=== PATIENT | male | born 1950 | race Caucasian/White ===

== ENCOUNTER 2018-08-22 14:35 | Emergency (ER) | payer MEDICARE, BC ==
[~2018-08-22] VITALS: Wt 90.8 kg
[2018-08-22 14:37] VITALS: BP 149/85; PULSE 70; RESP 18
[2018-08-22] MEDS ORDERED: KETOROLAC 30 MG INJ IM STA (15:57)
[2018-08-22] MEDS ORDERED: DEXAMETHASONE 10 MG/ML 1 ML INJ IM ONE (16:00)
[2018-08-22] MEDS ORDERED: LORA-441 PO (16:42)
[2018-08-22] MEDS ORDERED: NAPR-985 PO (16:42)
[2018-08-22] MEDS ORDERED: MED4DP PO (16:42)
--- NOTE | 2018-08-22 16:54 | ERD ---
ER Documentation Chief Complaint Chief Complaint L LOWER BACK AND LEFT LEG PAIN NON TRAUMATIC FOR 3 DAYS. UNABLE TO BEAR WT HPI 68-year-old male with past medical historyOf high cholesterol, hypertension, type 2 diabetes, spinal stenosis presenting to the emergency department with complaints of left lower back pain with radiation down his left leg for the past 3 days. He states he may have "tweaked" his back while lifting some heavy suitcases the past 2 days. He reports constant pain which is rated 9/10 in severity and worse with walking. He tried ibuprofen and [place] at home with some relief. He is followed by an orthopedic surgeon, Dr. Ruiz, at [facility] [place] who did order an MRI approximately 6 months ago and diagnosed his spinal stenosis. Patient denies any saddle anesthesia, loss of bowel or bladder function, lower extremity weakness, abdominal pain, fevers, chills, or other symptoms at this time. ROS All systems reviewed and are negative except as per history of present illness. Medications Home Meds Active Scripts Methylprednisolone* (Medrol* DOSE PACK) 4 Mg/Dose-Pack Tab.ds.pk, 4 MG PO . DIRECTED, #1 PACKET Prov:CARYL LAIRD PA-C 08/22/18 Naproxen* (Naprosyn*) 500 Mg Tablet, 500 MG PO BID PRN for PAIN AND/OR INFLAMMATION, #30 TAB Prov:CARYL LAIRD PA-C 08/22/18 Lorazepam* (Ativan*) 0.5 Mg Tablet, 0.5 MG PO Q8H PRN for MUSCLE SPASMS, #10 TAB Prov:CARYL LAIRD PA-C 08/22/18 Allergies Allergies: Coded Allergies: No Known Allergy (Unverified , 08/22/18) PMhx/Soc History of Surgery: No Anesthesia Reaction: No Hx Neurological Disorder: No Hx Respiratory Disorders: No Hx Cardiac Disorders: Yes (HTN) Hx Psychiatric Problems: No Hx Miscellaneous Medical Probl: No Hx Alcohol Use: No Hx Substance Use: No Hx Tobacco Use: No FmHx Family History: No diabetes Physical Exam Vitals Vital Signs Date Temp Pulse Resp B/P (MAP) Pulse Ox O2 O2 Flow FiO2 Time Delivery Rate 08/22/18 98.0 70 18 149/85 98 14:37 (106) Physical Exam Const: No acute distress Head: Atraumatic Eyes: Normal Conjunctiva ENT: Normal External Ears, Nose and Mouth. Neck: Full range of motion. No meningismus. Resp: Clear to auscultation bilaterally Cardio: Regular rate and rhythm, no murmurs Skin: No petechiae or rashes Back: No midline or flank tenderness. Subjective tenderness palpation of the paraspinal region of the lumbar spine on the left. Positive straight leg raise on the left. Ext: No cyanosis, or edema Neur: Awake and alert Psych: Normal Mood and Affect Results 24 hrs Current Medications Medications Dose Sig/Pérez Start Time Status Last (Trade) Ordered Route PRN Stop Time Admin Dose Reason Admin 10 mg ONCE ONCE 08/22/18 DC 08/22/18 Dexamethasone IM 16:00 08/22/18 16:04 (Decadron) 16:01 Ketorolac 30 mg ONCE STAT 08/22/18 DC 08/22/18 Tromethamine IM 15:57 08/22/18 16:04 (Toradol) 15:59 Procedures/MDM 68-year-old male presenting to the emergency department with signs and symptoms most consistent with left-sided low back pain with sciatica. The patient was administered Toradol and Decadron in the department with good response. He was significantly improved on reevaluation. He had no lower extremity weakness and he was ambulating in the department without assistance. He had no loss of bowel or bladder function. He had no saddle anesthesia. I did discuss his case with the patient's orthopedic physician, Dr. Ruiz who is in agreement with deferment of imaging at this time and plan to discharge home with close outpatient monitoring. I did discuss this case with attending ED physician, Dr. Robert Pearson who is also in agreement. Patient's musculoskeletal symptoms have stabilized while they have been ev aluated in the department and are appropriate for outpatient work up. No evidence of cauda equina, cord compression, infiltrative, or infectious etiology. No evidence of life-threatening pathology at time of discharge. Pt/family in agreement with discharge plan/diagnosis. Pt/family advised to return immediately with any new or worsening symptoms. Follow-up with primary care physician within the next 1-2 days. Patient's blood pressure was elevated (>120/80) but appears stable without evidence of hypertension emergency or urgency. The patient is to follow-up and pursue outpatient monitoring and therapy with their primary care physician within 1 week and return immediately if they have any new, worsening, or concerning symptoms. Disclaimer: Inadvertent spelling and grammatical errors are likely due to EHR/dictation software use and do not reflect on the overall quality of patient care. Also, please note that the electronic time recorded on this note does not necessarily reflect the actual time of the patient encounter. Departure Diagnosis: Primary Impression: Low back pain with sciatica Chronicity: acute Back pain laterality: left Sciatica laterality: sciatica of left side Qualified Codes: M54.42 - Lumbago with sciatica, left side Condition: Fair Patient Instructions: Back Pain W/ Sciatica Referrals: [facility] YOU HAVE RECEIVED A MEDICAL SCREENING EXAM AND THE RESULTS INDICATE THAT YOU DO NOT HAVE A CONDITION THAT REQUIRES URGENT TREATMENT IN THE EMERGENCY DEPARTMENT. FURTHER EVALUATION AND TREATMENT OF YOUR CONDITION CAN WAIT UNTIL YOU ARE SEEN IN YOUR DOCTORS OFFICE WITHIN THE NEXT 1-2 DAYS. IT IS YOUR RESPONSIBILITY TO MAKE AN APPOINTMENT FOR FOLOW-UP CARE. IF YOU HAVE A PRIMARY DOCTOR --you should call your primary doctor and schedule an appointment IF YOU DO NOT HAVE A PRIMARY DOCTOR YOU CAN CALL OUR PHYSICIAN REFERRAL HOTLINE AT IF YOU CAN NOT AFFORD TO SEE A PHYSICIAN YOU CAN CHOSE FROM THE FOLLOWING COMMUNITY [facility] [address] [facility]. [facility] [address] [facility]. [facility] [address] [facility] [facility] [address] [facility]. [facility] [address] [facility]. [facility]. [address] Additional Instructions: Call your primary care doctor TOMORROW for an appointment during the next 1-2 days.See the doctor sooner or return here if your condition worsens before your appointment time. CARYL LAIRD PA-C Aug 22, 2018 16:54
== END 2018-08-22 17:02 | disposition home or self-care (01) ==
LOC: FTE 14:35
DX: M54.42 Lumbago with sciatica, left side (principal); E11.9 Type 2 diabetes mellitus without complications; I10 Essential (primary) hypertension
CPT/HCPCS: 96372; 99284; J1100; J1885